=== PATIENT | male | born 1990 | race Caucasian/White ===

== ENCOUNTER 2016-09-23 11:12 | Emergency (ER) | payer MEDICAID, OTHER ==
--- NOTE | 2016-09-23 11:45 | ED ---
URI HPI - General Chief Complaint: Upper Respiratory Infection Stated Complaint: Pneumonia Symptoms Time Seen by Provider: 09/23/16 11:28 Source: patient, RN notes reviewed Mode of arrival: ambulatory Limitations: no limitations - History of Present Illness Initial Comments: 26-year-old male presents emergency department chief complaint of cough and fever. Patient states that he has a history of pneumonia. Patient states that he has had continued cough for the past 3 days. Patient states he started felt febrile states fluids. Patient will no rigidity back. Patient states that he has a history of smoking and still vaps. Patient states he hasn't had any nausea vomiting and he has had some phlegm production. Patient denies any other symptoms he denies any throat or ear pain. He denies any nasal congestion. Patient denies any recent shortness of breath, chest pain, back pain , abdominal pain, nausea vomiting, numbness or tingling, dysuria or hematuria, constipation or diarrhea, headaches or visual changes, or any other current symptoms. - Related Data Home Medications Medication Instructions Recorded Confirmed Buprenorphine HCl [Buprenorphine 8 mg PO TID 07/05/15 07/05/15 HCl] Previous Rx's Medication Instructions Recorded Albuterol Inhaler [Ventolin Hfa 1 - 2 puff INHALATION Q4-6H PRN #1 09/23/16 Inhaler] inhaler Azithromycin [Zithromax] 250 mg PO DIRECTED #6 tab 09/23/16 Allergies Allergy/AdvReac Type Severity Reaction Status Date / Time No Known Allergies Allergy Verified 09/23/16 12:02 Review of Systems ROS Statement: Those systems with pertinent positive or pertinent negative responses have been documented in the HPI. ROS Other: All systems not noted in ROS Statement are negative. Past Medical History Past Medical History: No Reported History History of Any Multi-Drug Resistant Organisms: None Reported Past Surgical History: Orthopedic Surgery Past Psychological History: No Psychological Hx Reported Smoking Status: Current some day smoker Past Alcohol Use History: None Reported Past Drug Use History: None Reported General Exam - General Exam Comments Initial Comments: General: The patient is awake and alert, in no distress, and does not appear acutely ill. Eye: Pupils are equal, round. Ears, nose, mouth and throat: There are moist mucous membranes. Neck: The neck is supple, there is no tenderness. Cardiovascular: There is a regular rate and rhythm. No murmur, rub or gallop is appreciated. Respiratory: Lungs are clear to auscultation, respirations are non-labored, breath sounds are equal but diffusely diminished. No wheezes, stridor, rales, or rhonchi. Back: There is no tenderness to palpation in the midline. There is no obvious deformity. No rashes noted. Musculoskeletal: Normal ROM, no tenderness, There is no pedal edema. There is no calf tenderness or swelling. Sensation intact. Pulses equal bilaterally 2+. Neurological: CN II-XII intact, There are no obvious motor or sensory deficits. Coordination appears grossly intact. Speech is normal. Skin: Skin is warm and dry and no rashes or lesions are noted. Psychiatric: Cooperative, appropriate mood & affect, normal judgment. Limitations: no limitations Course Vital Signs 09/23/16 09/23/16 11:22 11:46 Temperature 98 F Pulse Rate 61 Respiratory 20 16 Rate Blood Pressure 125/65 O2 Sat by Pulse 99 Oximetry Medical Decision Making - Medical Decision Making 26 yo male presents emergency department with concern for pneumonia. Some x- ray is showing suspicion for pneumonia. We will start the patient on azithromycin. We did discuss close follow-up with Dr. eddy parameters all patient's questions. He stated that he understood and is in agreement with plan. He will be discharged home. - Radiology Data Radiology results: report reviewed, image reviewed Disposition Clinical Impression: Bronchopneumonia Disposition: HOME SELF-CARE Condition: Stable Instructions: Bacterial Pneumonia (ED) Additional Instructions: Please use medication as discussed. Please follow up with family doctor if symptoms have not improved over the next two days. Please return to the emergency room if your symptoms increase or worsen or for any other concerns. Prescriptions: Albuterol Inhaler [Ventolin Hfa Inhaler] 1 - 2 puff INHALATION Q4-6H PRN #1 inhaler PRN Reason: Cough Azithromycin [Zithromax] 250 mg PO DIRECTED #6 tab Referrals: Humphrey Celestin MD [Primary Care Provider] - 1-2 days Time of Disposition: 12:03
[2016-09-23 11:53] VITALS: RESP 16
--- NOTE | 2016-09-23 11:57 | XR ---
EXAMINATION TYPE: XR chest 2V DATE OF EXAM: 09/23/2016 COMPARISON: September 29, 2011 HISTORY: Cough and congestion TECHNIQUE: Two frontal and one lateral view were obtained. FINDINGS: There is no bob lung consolidation. However, there is a subtle band of added opacity in the left lower lung zone which appears to correlate with the left lower lobe on the lateral radiograp h. There is also a suggestion of subtle increased opacity in the superior segment of the right lower lobe. This is even more subtle than on the left. Lungs are otherwise unremarkable. Pleural spaces are negative. The cardiac silhouette is normal. Medi astinal silhouette and bones and soft tissues are unremarkable. IMPRESSION: SUBTLE PERIBRONCHIAL FINDINGS; SUSPECT EARLY OR CLEARING BRONCHOPNEUMONIA
[2016-09-23 12:28] VITALS: BP 126/58; PULSE 57; TEMP 98.7
== END 2016-09-23 12:28 | disposition home or self-care (01) ==
LOC: EC 11:12
DX: J18.0 Bronchopneumonia, unspecified organism (principal); F17.200 Nicotine dependence, unspecified, uncomplicated; Z79.899 Other long term (current) drug therapy
CPT/HCPCS: 71020; 99283

== ENCOUNTER 2016-10-02 12:46 | Emergency (ER) | payer OTHER ==
[2016-10-02 12:55] VITALS: BP 127/78; PULSE 60; RESP 16; TEMP 98.3
--- NOTE | 2016-10-02 13:06 | ED ---
Upper Extremity HPI - General Chief Complaint: Extremity Injury, Upper Stated Complaint: rt knuckle injury Time Seen by Provider: 10/02/16 12:55 Source: patient Mode of arrival: ambulatory Limitations: no limitations - History of Present Illness Initial Comments: Patient is a 26-year-old right-handed male presenting to the emergency department with complaints of left hand pain after punching a wall last week. Patient currently rates pain 1 out of 10 described as aching especially when he palpates the distal end of the third metacarpal bone on the ulnar side dorsally. Patient denies previous injury or trauma to left upper hand extremity. Patient denies any other symptoms. No treatment prior to arrival. - Related Data Home Medications Medication Instructions Recorded Confirmed Buprenorphine HCl [Buprenorphine 8 mg PO BID 07/05/15 09/23/16 HCl] Previous Rx's Medication Instructions Recorded Albuterol Inhaler [Ventolin Hfa 1 - 2 puff INHALATION Q4-6H PRN #1 09/23/16 Inhaler] inhaler Azithromycin [Zithromax] 250 mg PO DIRECTED #6 tab 09/23/16 Allergies Allergy/AdvReac Type Severity Reaction Status Date / Time No Known Allergies Allergy Verified 10/02/16 12:52 Review of Systems ROS Statement: Those systems with pertinent positive or pertinent negative responses have been documented in the HPI. ROS Other: All systems not noted in ROS Statement are negative. Past Medical History Past Medical History: No Reported History History of Any Multi-Drug Resistant Organisms: None Reported Past Surgical History: Orthopedic Surgery Past Psychological History: No Psychological Hx Reported Smoking Status: Current some day smoker Past Alcohol Use History: None Reported Past Drug Use History: None Reported General Exam Limitations: no limitations General appearance: alert, in no apparent distress Head exam: Present: atraumatic, normocephalic, normal inspection Eye exam: Present: normal appearance ENT exam: Present: mucous membranes moist, normal external ear exam Neck exam: Present: normal inspection, full ROM. Absent: tenderness Respiratory exam: Present: normal lung sounds bilaterally. Absent: respiratory distress, wheezes, rales, rhonchi, stridor Cardiovascular Exam: Present: regular rate, normal rhythm, normal heart sounds. Absent: systolic murmur GI/Abdominal exam: Present: soft, normal bowel sounds. Absent: distended Left Shoulder Exam: Present: normal inspection, full ROM. Absent: tenderness, swelling Upper Arm exam: Present: normal inspection, full ROM. Absent: tenderness, swelling Elbow exam: Present: normal inspection, full ROM. Absent: tenderness, swelling Forearm Wrist exam: Present: normal inspection, full ROM. Absent: tenderness, swelling Hand Wrist exam: Present: full ROM, tenderness (Tenderness in between the third and fourth finger on the left-hand side particularly around the distal end of the third metacarpal bone.). Absent: swelling, laceration, ecchymosis Neuro motor exam: Present: wrist extension intact, thumb opposition intact, thumb IP flexion intact, thumb adduction intact, fingers 2-5 abduction intact Neurosensory exam: Present: 2-point discrimination, radial nerve intact, ulnar nerve intact, median nerve intact Vascular: Present: vascular compromise, normal capillary refill, radial pulse, brachial pulse, ulnar pulse Neurological exam: Present: alert, oriented X3, normal gait, other (No focal deficits noted.). Absent: motor sensory deficit Psychiatric exam: Present: normal affect, normal mood Skin exam: Present: warm, dry, intact, normal color Course Vital Signs 10/02/16 12:52 Temperature 98.3 F Pulse Rate 60 Respiratory 16 Rate Blood Pressure 127/78 O2 Sat by Pulse 99 Oximetry Medical Decision Making - Medical Decision Making Left hand pain status post direct blow one week ago. X-ray of left hand without fracture or dislocation. Patient instructed to follow-up with orthopedic service with persistent pain. Patient agrees with treatment plan. Discharge instructions and return parameters reviewed. - Radiology Data Radiology results: report reviewed X-ray left hand: No acute fracture or dislocation. Joint spaces in hand appear within normal limits. Overlying soft tissue appears unremarkable. As read by Dr. Car. Disposition Clinical Impression: Hand pain, left Disposition: HOME SELF-CARE Condition: Good Instructions: Hand Sprain (ED) Additional Instructions: Follow-up with orthopedic service if pain persist. Continue Motrin or Tylenol for pain. Please return to the emergency department if symptoms do not improve or get worse. Referrals: Humphrey Celestin MD [Primary Care Provider] - 1-2 days Asher Chavez MD [Medical Doctor] - 1-2 days (Follow-up as needed if pain persist.) Time of Disposition: 13:44
--- NOTE | 2016-10-02 13:42 | XR ---
EXAMINATION TYPE: XR hand complete LT DATE OF EXAM: 10/02/2016 CLINICAL HISTORY: Left hand pain TECHNIQUE: Frontal, lateral and oblique images of the hand are obtained. COMPARISON: None. FINDINGS: There is no acute fracture/dislocation evident in the hand. The joint spaces in the hand a ppear within normal limits. The overlying soft tissue appears unremarkable. IMPRESSION: There is no acute fracture or dislocation in the hand.
== END 2016-10-02 13:45 | disposition home or self-care (01) ==
LOC: EC 12:46
DX: M79.642 Pain in left hand (principal); F17.200 Nicotine dependence, unspecified, uncomplicated; Z79.899 Other long term (current) drug therapy; W20.8XXA Other cause of strike by thrown, projected or falling object, initial encounter
CPT/HCPCS: 99283

== ENCOUNTER 2016-11-18 05:52 | Emergency (ER) | payer OTHER ==
[2016-11-18 06:00] VITALS: BP 122/58; PULSE 53; RESP 18; TEMP 97.1
--- NOTE | 2016-11-18 07:10 | ED ---
General Adult HPI - General Chief complaint: Wound/Laceration Stated complaint: Male Time Seen by Provider: 11/18/16 07:02 Source: patient, RN notes reviewed Mode of arrival: ambulatory Limitations: no limitations - History of Present Illness Initial comments: 26 yo male presents for evaluation of penis laceration. 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 He decided this evening that he would cut the skin bridge with scissors. I do not want to pay for the urological procedure to correct this. Denies any other injury. Patient presented for evaluation because there was significant bleeding which she was unable to control at home. - Related Data Home Medications Medication Instructions Recorded Confirmed No Known Home Medications [No 10/02/16 11/18/16 Known Home Medications] Buprenorphine HCl [Subutex] 8 mg SL BID 11/18/16 11/18/16 Allergies Allergy/AdvReac Type Severity Reaction Status Date / Time No Known Allergies Allergy Verified 10/02/16 12:52 Review of Systems ROS Statement: Those systems with pertinent positive or pertinent negative responses have been documented in the HPI. ROS Other: All systems not noted in ROS Statement are negative. Past Medical History Past Medical History: No Reported History History of Any Multi-Drug Resistant Organisms: None Reported Past Surgical History: Orthopedic Surgery Additional Past Surgical History / Comment(s): R knee sx Past Psychological History: No Psychological Hx Reported Smoking Status: Current every day smoker Past Alcohol Use History: None Reported Past Drug Use History: None Reported General Exam Limitations: no limitations General appearance: alert, in no apparent distress Head exam: Present: atraumatic, normocephalic Eye exam: Present: normal appearance, PERRL ENT exam: Present: normal exam, mucous membranes moist Neck exam: Present: normal inspection. Absent: tenderness Respiratory exam: Present: normal lung sounds bilaterally. Absent: respiratory distress Cardiovascular Exam: Present: regular rate, normal rhythm GI/Abdominal exam: Present: soft. Absent: distended, tenderness External exam: Present: lacerations (Laceration on the left base of the glans, no active bleeding, consistent with lacerated skin bridge) Extremities exam: Present: normal inspection, normal capillary refill Back exam: Present: normal inspection Neurological exam: Present: alert, oriented X3 Psychiatric exam: Present: normal affect, normal mood Skin exam: Present: warm, dry. Absent: cyanosis, diaphoretic Course Vital Signs 11/18/16 05:55 Temperature 97.1 F L Pulse Rate 53 L Respiratory 18 Rate Blood Pressure 122/58 O2 Sat by Pulse 98 Oximetry Medical Decision Making - Medical Decision Making 26-year-old male presenting after cutting a skin bridge on his penis. Patient presented for evaluation of bleeding. Bleeding had stopped at the time my evaluation. Laceration was superficial. Area was cleansed, and bacitracin was placed over the laceration. Patient will return to urology for follow-up. Patient did intend to cut the skin bridge, this was to save money on the cost of a formal operation. Disposition Clinical Impression: Penile laceration Disposition: HOME SELF-CARE Condition: Good Instructions: Laceration (ED) Referrals: Humphrey Celestin MD [Primary Care Provider] - 1-2 days Michael Espinoza MD [STAFF PHYSICIAN] - 1-2 days Time of Disposition: 07:10
== END 2016-11-18 07:21 | disposition home or self-care (01) ==
LOC: EC 05:52
DX: S31.21XA Laceration without foreign body of penis, initial encounter (principal); F17.200 Nicotine dependence, unspecified, uncomplicated; Z79.899 Other long term (current) drug therapy; Y28.8XXA Contact with other sharp object, undetermined intent, initial encounter; Y92.009 Unspecified place in unspecified non-institutional (private) residence as the place of occurrence of the external cause
CPT/HCPCS: 99282

== ENCOUNTER 2017-02-22 12:41 | Inpatient (IN) | payer MEDICAID, OTHER ==
--- NOTE | 2017-02-22 13:58 | ED ---
Psych HPI - General Chief Complaint: Psychiatric Symptoms Stated Complaint: Mental Health Time Seen by Provider: 02/22/17 13:35 Source: family, police Mode of arrival: ambulatory - History of Present Illness Initial Comments: 's patient is a 27-year-old man brought to have psychiatric evaluation. He states that he has been depressed for up to 2 years in relation to the fact that he has been lonely and does not have a girlfriend. The patient states that he was discussing this with his family in does admit to making some suicidal statements and they phoned [id number]. The patient states that he does not really feel suicidal right now. He states that he would like to go. MD Complaint: suicidal ideation, feels depressed Onset/Timin -: year(s) Associated Psychiatric Symptoms: depression, suicidal ideation Quality: constant Improves With: none Worsens With: none Associated Symptoms: denies other symptoms - Related Data Home Medications Medication Instructions Recorded Confirmed Buprenorphine HCl [Subutex] 8 mg SL BID 11/18/16 02/22/17 Allergies Allergy/AdvReac Type Severity Reaction Status Date / Time No Known Allergies Allergy Verified 02/22/17 13:29 Review of Systems ROS Statement: Those systems with pertinent positive or pertinent negative responses have been documented in the HPI. ROS Other: All systems not noted in ROS Statement are negative. Constitutional: Denies: fever Respiratory: Denies: cough, dyspnea Cardiovascular: Denies: chest pain, palpitations Gastrointestinal: Denies: abdominal pain, vomiting Musculoskeletal: Denies: back pain Skin: Denies: rash Neurological: Denies: headache Psychiatric: Reports: as per HPI, depression. Denies: anxiety, auditory hallucinations, visual hallucinations, homicidal thoughts, suicidal thoughts Past Medical History Past Medical History: No Reported History History of Any Multi-Drug Resistant Organisms: None Reported Past Surgical History: Orthopedic Surgery Additional Past Surgical History / Comment(s): R knee sx Past Psychological History: Depression Smoking Status: Current every day smoker Past Alcohol Use History: None Reported Past Drug Use History: None Reported General Exam Limitations: no limitations General appearance: alert, in no apparent distress Head exam: Present: atraumatic, normocephalic Eye exam: Present: normal appearance. Absent: scleral icterus, conjunctival injection ENT exam: Present: normal oropharynx Respiratory exam: Present: normal lung sounds bilaterally. Absent: respiratory distress, wheezes, rales, rhonchi, stridor Cardiovascular Exam: Present: regular rate, normal rhythm, normal heart sounds. Absent: systolic murmur, diastolic murmur, rubs, gallop GI/Abdominal exam: Present: soft. Absent: tenderness Neurological exam: Present: alert Psychiatric exam: Present: normal affect, normal mood. Absent: agitated, anxious, flat affect, manic, homicidal ideation, suicidal ideation Skin exam: Present: warm, dry, intact, normal color. Absent: rash Course Vital Signs 02/22/17 12:47 Temperature 97.2 F L Pulse Rate 70 Respiratory 18 Rate Blood Pressure 140/71 O2 Sat by Pulse 100 Oximetry Disposition Clinical Impression: Mood disorder, Suicidal ideation Disposition: ADMITTED IP TO THIS HOSP Condition: Good
[2017-02-22] MEDS ORDERED: ACETAMINOPHEN TAB 325 MG TAB PO PRN (15:34)
[2017-02-22] MEDS ORDERED: MAGNESIUM HYDROXIDE 2,400 MG/10 ML CUP PO PRN (15:34)
[2017-02-22] MEDS ORDERED: ZIPRASIDONE 20 MG VIAL IM PRN (15:34)
[2017-02-22] MEDS ORDERED: MAG HYDROX/AL HYDROX/SIMETH 30 ML CUP PO PRN (15:34)
[2017-02-22] MEDS: NICOTINE 14MG/24HR PATCH TRANSDERM SCH (16:04)
[2017-02-22 17:12] VITALS: BMI 25.7
[2017-02-22] MEDS: LORazepam 1 MG TAB PO PRN (17:13)
[2017-02-22] MEDS: BUPRENORPHINE HCL 8 MG SL SCH (22:38)
[2017-02-23 08:31] LABS: Basophils % (A) 1 %; CH 29.3; CHCM 32.5; Eosinophils # (A) 0.1 k/uL (0-0.7); Eosinophils % (A) 2 %; HCT 48.5 % (39.0-53.0); HDW 2.22; HGB 15.5 gm/dL (13.0-17.5); Luc % (Auto) 2; Lymphocytes # (A) 2.6 k/uL (1.0-4.8); Lymphocytes % (A) 40 %; MCV 90.6 fL (80.0-100.0); Mean Platelet Volume 6.6; Monocytes # (A) 0.5 k/uL (0-1.0); Monocytes % (A) 7 %; Neutrophils # (A) 3.1 k/uL (1.3-7.7); Neutrophils % (A) 49 %; RBC 5.35 m/uL (4.30-5.90); RDW 13.9 % (11.5-15.5); WBC 6.5 k/uL (3.8-10.6); WBC (Perox) 6.59
[2017-02-23] MEDS: NICOTINE 14MG/24HR PATCH TRANSDERM SCH (08:32)
[2017-02-23] MEDS: LORazepam 1 MG TAB PO PRN (08:33)
[2017-02-23] MEDS: BUPRENORPHINE HCL 8 MG SL SCH ×2 (08:34→21:44)
[2017-02-23 08:45] LABS: ALT 35 U/L (21-72); AST 22 U/L (17-59); Alkaline Phosphatase 46 U/L (38-126); Anion Gap 10 mmol/L; Blood Urea Nitrogen 18 mg/dL (9-20); Calcium 9.9 mg/dL (8.4-10.2); Carbon Dioxide 28 mmol/L (22-30); Chloride 104 mmol/L (98-107); Glucose 85 mg/dL (74-99); Non-African American GFR(MDRD) >60 (>60 ml/min/1.73 sqM); Potassium 4.5 mmol/L (3.5-5.1); Sodium 142 mmol/L (137-145); Total Bilirubin 0.7 mg/dL (0.2-1.3)
[2017-02-23 09:31] LABS: Appearance,Urine Clear (Clear); Bilirubin,Urine Negative (Negative); Glucose,Urine (UA) Negative (Negative); Ketones,Urine Negative (Negative); Leukocyte Esterase,Urine Negative (Negative); Nitrite,Urine Negative (Negative); Protein,Urine Negative (Negative); UA Billing (MACRO vs. MICRO) CHEM; Urobilinogen,Urine <2.0 mg/dL (<2.0)
[2017-02-23] MEDS: OLANZapine 2.5 MG TAB PO SCH ×3 (10:49→21:44)
[2017-02-23] MEDS: FLUoxetine HCL 20 MG CAP PO SCH (10:49)
--- NOTE | 2017-02-23 11:28 | HP ---
HISTORY AND PHYSICAL IDENTIFYING DATA: Patient is a 27-year-old male. He resides with his father. He came to the emergency room for admission. CHIEF COMPLAINT: The patient was depressed, he had suicide thoughts. He was hopeless over relationship issues. His father filed a petition for involuntary hospitalization. HISTORY OF PRESENT ILLNESS: The patient has had problems with depression over the last 2-3 years. He has poor self- esteem. He struggles with shyness and anxiety as his main issue. He recognizes that shyness is a trait he has had his entire life. He says the biggest affect is he feels he can never date someone with the hopes of having a permanent relationship. He broke up with a girlfriend who he had only been seen for 2 weeks. He said she made some very disparaging comments about him, which he took to heart. He became suicidal. He told his father and other people, prompting his father to file petition for admission. The patient acknowledges that he has had depression over 2-3 years, though he cannot really identify precipitants other than a general sense that he is not going very far in his life. He has a high school degree. 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 He says he has some aspirations for going farther with education and career, though he has not been able to do much in that regard. He notes that his biggest issue is struggling with anxiety and shyness. He has trouble socially. He says he tries to be a social person and get out in the community, though when he is around people, he gets very anxious. He says he gets red in the face. He has significant problems just in any setting where he has to meet a new person. He said that this girlfriend that he was seeing for the last 2 weeks was the first time he dated in about 2 years. He reports that he has been sleeping fairly well. He has decent energy. He does have hopeless and helpless feelings. He had been smoking marijuana daily and says that he smokes a significant amount of marijuana, though he stopped smoking altogether about 1 month ago. He had a past history of heroin dependence for 1 year. He got off of heroin about 5 years ago though within a matter of days he was able to get on Suboxone, which he has been taking since. He says he has tapered his Suboxone down to the lowest dose. He has not had any Suboxone in the last 3 days. He denies use of alcohol or other abusive substances. The patient currently is not on any psychotropic medications. He has not had a past psychiatric hospitalization other than some counseling as a teenager. He has not had any other mental health intervention. He is admitted for further evaluation. SUBSTANCE USE HISTORY: As above. PAST MEDICAL HISTORY: Medical history: Patient reports no significant or chronic general health complaints. REVIEW OF SYMPTOMS: Review of systems is negative in 11 systems. Further medical history and review of systems as per medical consultation. FAMILY AND SOCIAL HISTORY: Patient lives with his father. He works at [employer] in [employer]. He is single. 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 He would have an interest in pursuing an academic career in [place]. He has had some legal issues in the past and spent 6 months in correction for retail fraud when he stole about 120 dollars worth of food. He says he has been saving money and feels that he has enough money now to put a down payment on the house, though he would consider trying to get back to school as a good option for him. He has a younger brother, 2 years younger. His parents when he was young. He and his brother lived with mother for their younger years and around age 12 or 13 they moved with their father. There was a lot of conflict in the home and the family was in some counseling when he was in his early teens. He otherwise has not had other mental health intervention. MENTAL STATUS EXAM: Patient was casually dressed and cooperative. Eye contact was fair. He tended to frequently look off to the side rather than give direct eye contact. He was restless. He seemed to have some diaphoresis, which was suggestive of anxiety. There were a few times he got a little red in the face. He answered questions appropriately. His thoughts were clear and coherent. He was spontaneous and interactive. His affect was anxious and at times a little intense. His mood dysphoric. He was significantly distressed. There was no indication of thought disorder. On cognitive exam, he was oriented x3 and alert. Recent remote memory was intact. Attention and concentration were fair. He could spell world forward and backwards. He did adequate calculations. He remembered 3 out of 3 objects at 4 minutes. Insight was fair. Judgment uncertain. Fund of knowledge and intellectual level average. ASSESSMENT: This 27-year-old male is diagnosed with social anxiety disorder, depression, and generalized anxiety disorder. He has had long-term problems with shyness, which is an enduring trait. He has poor self-esteem. The patient has only limited insight in regards to his anxiety condition. He also has withdrawal issues relating to both marijuana and Suboxone. Strengths include [place] intelligence and at least some sense of a direction he could take in his life. Weakness includes struggles with feelings of poor self-worth. DIAGNOSES: 1. Major depression, chronic and recurrent with acute exacerbation without psychotic features. 2. Social anxiety disorder. 3. Opioid dependence. 4. Withdrawal from marijuana and opioids. RECOMMENDATIONS: Patient will be admitted for comprehensive medical psychiatric and psychosocial evaluation. We will engage the patient in individual and group therapeutic activities. I will start the patient on Prozac 20 mg a day to treat depression and anxiety issues. I will start the patient on Zyprexa 2.5 mg 3 times a day. The aim is to help reduce physiologic stress response relating to acute withdrawal. Zyprexa may also help augment his antidepressant and reduce some of his anxiety symptoms. I had an extensive discussion with the patient regarding the critical need for him to remain off Suboxone, marijuana and any other abusive substances. The patient is willing to make an effort to fully withdrawal from opioids. I had an extensive discussion regarding the time frame for withdrawal. We may need to titrate up on his Zyprexa if he is not getting at least some benefit in terms of reducing withdrawal symptoms. I discussed with the patient that I would not anticipate much improvement in regards to antidepressant therapy until he is at least 6 weeks through early withdrawal from his opioids. We discussed career options with a consideration for him to look at getting back to school, possibly to pursue studies in history, which he seems to have a strong interest and knowledge in. We discussed that if he does not have some clear goals in life for himself, he is not likely to be able to get involved in relationships that would be supportive and positive for him. We will focus on stabilization and discharge planning. MMCINDYL / KEIN: [id number] /
--- NOTE | 2017-02-23 16:34 | CONS ---
CONSULTATION DATE OF CONSULTATION: February 23, 2017. REASON FOR CONSULTATION: Medical management requested by Dr. Fay. CONSULTATION: This is a 27-year-old patient of Dr. Shashi Celestin, very pleasant gentleman who actually broke up with his girlfriend and felt feeling depressed and low and told his father he that he wanted to kill himself. He did not really mean it, just wanted some sympathy. Father decided to call him in and patient admitted for the same. The patient still feels a bit low about it. Otherwise in good health, otherwise. Up and about. Tolerating a diet. REVIEW OF SYSTEMS: CONSTITUTIONAL: None. HEENT none. Respiratory none. Cardiovascular none. Gastrointestinal none. GENITOURINARY: None. MUSCULOSKELETAL: None. Dermatological and hematologic, lymphatic none. Psychiatry as above. Neurological none. PAST MEDICAL HISTORY: None. PAST SURGICAL HISTORY: Right knee surgeries. PAST PSYCH HISTORY: History of depression. SOCIAL HISTORY: The patient smokes vapor cigarettes. Has been clean from heroin for 6 years and has been off Suboxone 72 hours. He has a girlfriend. 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 FAMILY HISTORY: Reviewed noncontributory to presentation. HOME MEDICATIONS: mg sublingual b.i.d. ALLERGIES: None. PHYSICAL EXAMINATION: His temperature 97.8, pulse 67, respiratory rate 16, blood pressure 108/55, pulse ox 100% on room air. General appearance is comfortable, sitting up, eyes pupils are equal. Conjunctivae normal. HEENT: Oral cavity normal. Neck JVD not raised. Mass not palpable. Respiratory effort lungs are clear. Cardiovascular first and second sounds, no edema. ABDOMEN: Soft, nontender. Liver and spleen not palpable. Lymphatics: No lymph nodes palpable in the neck and axilla. Psychiatry alert and oriented x3. Mood and affect slightly low appearing. Neurological pupils equal. Cranial nerves grossly intact. Power and sensation grossly intact. INVESTIGATIONS: White count 6.5, hemoglobin 15.5, potassium 4.5./ BUN creatinine . UA is negative. ASSESSMENT: 1. Depressed mood. More formal assessment as per Psychiatry. 2. Smoking use chronic in the form of vapor. PLAN: Antidepressive medications as per Psychiatry. The patient currently on Geodon, Zyprexa, Ativan, Prozac. The patient has been prescribed nicotine patch. The patient should follow up with family doctor upon discharge. Thank you Dr. Fay. LANI / KEIN: [id number] /
[2017-02-24 07:04] VITALS: RESP 14
[2017-02-24] MEDS: BUPRENORPHINE HCL 8 MG SL SCH ×2 (09:20→21:51)
[2017-02-24] MEDS: NICOTINE 14MG/24HR PATCH TRANSDERM SCH (09:20)
[2017-02-24] MEDS: FLUoxetine HCL 20 MG CAP PO SCH (09:20)
[2017-02-24] MEDS: OLANZapine 2.5 MG TAB PO SCH ×3 (09:21→21:51)
--- NOTE | 2017-02-24 17:37 | P.PN ---
Progress Note - Text Progress Note Date: 02/24/17 27yo CM admitted on 02/22/17 after petition filed by his father due to concerns of suicidal intent Last 24hrs: Patient anxious to speak to this provider this morning. When approached during rounds he followed me into my office. Pt adamantly denies SI at this time. He states that he only stated those thoughts to get attention. However, he did tell co-workers along with family members. He reports that he has never attempted suicide and regrets making those statements. Patient became upset when told that he wouldn't be discharged today. States that he is wasting his time being here and ready to return to work. He did sign an AMA form this afternoon. According to unit staff, pt made threats to kick the doors and disrupt the unit if not discharged. Informed patient that behavioral disturbances will not help him get off the unit and he voiced understanding. Nurses report that he has been selectively compliant with Zyprexa but taking the Prozac daily as prescribed. He has been attending groups on the unit. Slept well with 6 hrs last night. No behavioral disturbances displayed thus far. MSE: Pt is a 27yo male who is well-groomed and in NAD. His speech is spontaneous and with normal rate and volume. Mood is frustrated and affect is restricted. Denies SI, HI and AVH. Thought process is linear and goal- directed. AAO x 3. Memory is grossly intact. Judgment and Insight is limited. ASSESSMENT: 1. MDD, chronic, recurrent with acute exacerbation 2. Anxiety DO Unspecified 3. Opioid Dependance PLAN: Continue current medications prescribed. RHETT arranged for family meeting with patient's father tomorrow at 11:30am. Will discuss discharge planning following meeting.
[2017-02-25 06:47] VITALS: BP 103/57; PULSE 62; TEMP 97.5
[2017-02-25] MEDS: NICOTINE 14MG/24HR PATCH TRANSDERM SCH (09:03)
[2017-02-25] MEDS: FLUoxetine HCL 20 MG CAP PO SCH (09:03)
[2017-02-25] MEDS: OLANZapine 2.5 MG TAB PO SCH (09:03)
[2017-02-25] MEDS: BUPRENORPHINE HCL 8 MG SL SCH (09:18)
--- NOTE | 2017-03-16 21:31 | P.DS ---
Providers Date of admission: 02/22/17 15:16 Expected date of discharge: 02/25/17 Attending physician: Tobi Fay, DO Consults: 02/22/17 15:34 Consult Physician Routine Consulting Provider: Maverick Faye Consult Reason/Comments: H and P Do you want consulting provider notified?: Yes Primary care physician: Humphrey Celestin - Discharge Diagnosis(es) (1) Chronic major depressive disorder, recurrent episode Status: Acute (2) Anxiety disorder, unspecified Status: Acute (3) Opioid dependence Status: Acute Hospital Course: Upon admission, patient seen by Dr. Marquez who was covering for this provider. He reported symptoms of depression and anxiety. According to documentation patient stated SI to his family and co-workers. He was started on Prozac 20mg daily and Zyprexa 2.5mg TID. However, on hospital day 2 patient seen by this provider and adamantly denied SI at that time. He stated that he only reported those thoughts to get attention. However, he did tell co-workers along with family members. He reported that he has never attempted suicide and regretted making those statements. Patient became upset when told that he wouldn't be discharged today. Stated that he is wasting his time being here and ready to return to work. He did sign an AMA form that afternoon. According to unit staff, pt made threats to kick the doors and disrupt the unit if not discharged. Patient was informed that behavioral disturbances will not help him get off the unit and he voiced understanding. No behavioral disturbances were displayed during hospitalization. Nurses reported that pt had been selectively compliant with Zyprexa but was taking the Prozac daily as prescribed. When questioned about this patient stated that he did not like the way the Zyprexa made him feel and therefore did not want to continue this medication. Therefore Zyprexa was discontinued. He attended groups on the unit. Although he initially reported symptoms of social anxiety, he appeared to be very social and interactive with other patients on the unit throughout hospital stay. He also maintained good sleep hygiene and appetite throughout hospitalization. On discharge patient continued to deny SI. A family meeting was held with patient's father, whom he lives with, prior to discharge and his father felt comfortable with patient returning home. Patient Condition at Discharge: Good Plan - Discharge Summary Discharge Rx Participant: No New Discharge Prescriptions: New FLUoxetine HCL [PROzac] 20 mg PO DAILY #30 cap Nicotine 14Mg/24Hr Patch [Habitrol] 1 patch TRANSDERM DAILY #30 patch Continue Buprenorphine HCl [Subutex] 8 mg SL BID Discharge Medication List Buprenorphine HCl [Subutex] 8 mg SL BID 11/18/16 [History] FLUoxetine HCL [PROzac] 20 mg PO DAILY #30 cap 02/25/17 [Rx] Nicotine 14Mg/24Hr Patch [Habitrol] 1 patch TRANSDERM DAILY #30 patch 02/25/17 [ Rx] Follow up Appointment(s)/Referral(s): [facility] [Outside] - 03/04/17 10:00 am (Humphrey Prince MD [Primary Care Provider] - 1-2 days Patient Instructions/Handouts: Cigarette Smoking and Your Health (GEN), Mood Disorders (GEN), Suicide Prevention for Adults (GEN) Activity/Diet/Wound Care/Special Instructions: Activity and diet as tolerated. Avoid the use of street drugs and alcohol. Take all medications as prescribed. When you are in need of refills on your medications please contact your medical provider and/or outpatient psychiatrist to have this done. Please go to scheduled outpatient appointment for aftercare treatment. If symptoms return or become worse call the crisis line at [phone] and/or go to the nearest emergency room for an evaluation. Discharge Disposition: HOME SELF-CARE
== END 2017-02-25 13:44 | disposition home or self-care (01) | DRG 751 ==
LOC: EC 12:41 → 3MHU 15:16
PROVIDERS: ADMIT Psychiatry & Neurology Psychiatry; ATTEND Psychiatry & Neurology Psychiatry
DX: F33.9 Major depressive disorder, recurrent, unspecified (principal); R45.851 Suicidal ideations; F17.290 Nicotine dependence, other tobacco product, uncomplicated; F41.8 Other specified anxiety disorders; F12.288 Cannabis dependence with other cannabis-induced disorder; F11.23 Opioid dependence with withdrawal; Z79.899 Other long term (current) drug therapy
CPT/HCPCS: 80053; 81003; 82075; 84443; 85025; 99285

== ENCOUNTER → 2018-11-29 | Outpatient (CLI) | payer OTHER ==
--- NOTE | 2018-11-29 19:12 | FL ---
EXAMINATION TYPE: Left wrist fluoroscopic-guided arthrogram injection. DATE OF EXAM: 11/29/2018 HISTORY: 28-year-old male worsening dorsal left wrist pain for 10 months. PROCEDURES: 1. Left wrist fluoroscopy. 2. Left wrist arthrogram. Total fluoroscopy time: 42 seconds. Total images: 14. TECHNIQUE: The procedure, risks, and alternatives, were discussed with the patient, who requested that karon valadez The consent form was signed, and teach-back occurred. The site/side of the procedure was marked with a line with participation by the patient. The accompan reuben paperwork was verified for consistency. A directed history and physical exam was performed prior to the procedure. A critical pause was perfo rmed with assisting personnel just prior to the procedure, and the patient's identity was confirmed u sing 2 identifiers. Imaging guidance was utilized to select the precise skin entry point just prior to the procedure. The dorsal left wrist was prepped and draped in the usual sterile fashion and local 1% lidocaine anes thesia was instilled. Under fluoroscopic guidance, a 25-gauge long needle was introduced into the do rsal aspect of the left radioscaphoid joint. Appropriate needle tip position was confirmed after a sm all amount of contrast injection. Approximately 2.5 ml of a mixture of Omnipaque 350 iodinated contrast, sterile saline, and Gadavist w as injected into the wrist joint. This was taken from a 20 mL mixture comprised of 5 mL Omnipaque 350 , 15 mL sterile saline, and 0.07 mL Gadavist. The needle was then removed. The patient tolerated the procedure well. A post-procedure note was placed into the medical record. There was no immediate complication. After the procedure, the patient's condition was unchanged. Estimated blood loss was minimal. The pa tient was counseled on routine post procedure precautions including monitoring for signs of infection . Post procedure radiographs demonstrate extension of injected contrast into the midcarpal compartment and level of the intermetacarpal joints. No abnormal extension into the distal radioulnar joint. IMPRESSION: Technically successful left wrist arthrogram injection for MRI. No immediate complication. We note ex tension across the scapholunate interval into the midcarpal compartment.
--- NOTE | 2018-11-29 19:44 | MR ---
EXAMINATION TYPE: MRI arthrogram left wrist DATE OF EXAM: 11/29/2018 COMPARISON: Arthrogram injection same day HISTORY: 28-year-old male left wrist pain, limited range of motion. Technique: Multiplanar, multisequence images of the left wrist were obtained after intra-articular in jection of a gadolinium mixture (refer to arthrogram injection report of the same day for further det ails). FINDINGS: There is adequate contrast distention of the wrist joint. There is lobular heterogeneity and irregularity of the dorsal scapholunate ligament with contrast see n extending into the midcarpal compartment. The lunotriquetral ligament is intact. Overall cartilage is maintained without evidence for bony erosions. Mild tenosynovial fluid seen along the extensor carpi radialis longus and extensor pollicis longus. S ome iatrogenically introduce contrast is present along the extensor carpi radialis longus and brevis. Some tendinotic signal is present within the distal extensor carpi ulnaris. Otherwise, the dorsal ext ensor and flexor tendons are within normal limits. There is fusiform thickening of the median nerve at the level of the distal carpal crease measuring u p to 26.2 sq mm. The central portion of the triangular fibrocartilage remains intact. However, there is prominent cont rast extension into the distal radial ulnar joint with some irregularity noted of the dorsal radiouln ar ligament. Filling of a multilocular cyst measuring 1.3 x 1.1 cm along the inferior aspect of the pisotriquetral joint. The visualized musculature and osseous structures are within normal limits. IMPRESSION: 1. Injection into the dorsal radioscaphoid joint shows contrast extension into the midcarpal compartm ent. Given the irregular appearance to the dorsal portion of the scapholunate ligament, underlying te ar is suggested. 2. Additional contrast extension into the distal radioulnar joint with irregularity of the dorsal rad ial ulnar ligament suspicious for tear. The central portion of the TFC remains intact. Clinically cor relate. 3. Fusiform thickening of the median nerve up to 26.2 sq mm can be seen with carpal tunnel syndrome. 4. Small multilocular ganglion cyst measuring 1.3 x 1.1 cm along the inferior aspect of the pisotriqu etral joint fills with contrast. 5. Mild tenosynovial fluid along the EPL and ECRL may be physiologic or could reflect a mild tenosyno vitis.
== END | disposition home or self-care (01) ==
LOC: RADFLMAIN 12:50
PROVIDERS: ATTEND Orthopaedic Surgery
DX: G56.02 Carpal tunnel syndrome, left upper limb (principal); M67.432 Ganglion, left wrist
CPT/HCPCS: 25246; 73115; 73222; A9585; Q9967

== ENCOUNTER 2021-09-13 23:29 | Emergency (ER) | payer OTHER ==
[2021-09-13 23:39] VITALS: BP 115/67; PULSE 75; RESP 18; TEMP 98.1
[2021-09-14] MEDS ORDERED: DIPH,PERTUS(ACELL)TETVAC-LF 0.5 ML VIAL IM ONE (00:38)
--- NOTE | 2021-09-14 00:40 | ED ---
General Adult HPI - General Chief complaint: Skin/Abscess/Foreign Body Stated complaint: Cat Bite Time Seen by Provider: 09/14/21 00:30 Source: patient, RN notes reviewed, old records reviewed Mode of arrival: ambulatory Limitations: no limitations - History of Present Illness Initial comments: 31-year-old male presents to the emergency room stating his cat bit his right lower leg 3 days ago. Patient states that it became red and swollen today with some drainage. He denies any other medical history. He is not sure if his tetanus shot is up-to-date. -: days(s) (3) Location: right, lower extremity (calf) Radiation: non-radiation Severity scale (1-10): 8 Quality: constant Consistency: constant - Related Data Home Medications Medication Instructions Recorded Confirmed buprenorphine HCL [Subutex] 8 mg SL BID 11/18/16 02/22/17 Previous Rx's Medication Instructions Recorded FLUoxetine HCL [PROzac] 20 mg PO DAILY #30 cap 02/25/17 Nicotine 14Mg/24Hr Patch [Habitrol] 1 patch TRANSDERM DAILY #30 patch 02/25/17 Amoxicillin/Potassium Clav 1 tab PO Q12HR 7 Days #14 tab 09/14/21 [Augmentin 875-125 Tablet] Allergies Allergy/AdvReac Type Severity Reaction Status Date / Time No Known Allergies Allergy Verified 02/22/17 13:29 Review of Systems ROS Statement: Those systems with pertinent positive or pertinent negative responses have been documented in the HPI. ROS Other: All systems not noted in ROS Statement are negative. Past Medical History Past Medical History: No Reported History History of Any Multi-Drug Resistant Organisms: None Reported Past Surgical History: Orthopedic Surgery Additional Past Surgical History / Comment(s): R knee sx Past Anesthesia/Blood Transfusion Reactions: No Reported Reaction Past Psychological History: Depression Smoking Status: Current every day smoker Past Alcohol Use History: None Reported Past Drug Use History: None Reported General Exam Limitations: no limitations General appearance: alert, in no apparent distress Head exam: Present: atraumatic Eye exam: Present: normal appearance Respiratory exam: Present: normal lung sounds bilaterally. Absent: respiratory distress, accessory muscle use Cardiovascular Exam: Present: regular rate GI/Abdominal exam: Present: soft. Absent: distended Neurological exam: Present: alert, oriented X3, normal gait Psychiatric exam: Present: normal affect, normal mood Skin exam: Present: erythema, other (three puncture wounds right calf with surrounding erythema measuring approximately 11 cm x 7 cm) Course Vital Signs 09/13/21 23:36 Temperature 98.1 F Pulse Rate 75 Respiratory 18 Rate Blood Pressure 115/67 O2 Sat by Pulse 98 Oximetry Medical Decision Making - Medical Decision Making Wounds are irrigated with saline by the nurse. Bacitracin dressing was applied. Tetanus shot was updated. He was placed on antibiotics and given a dose in the emergency room. Patient's erythema was outlined with a skin marker. He was instructed to return to the emergency room with any new or concerning symptoms including spreading redness, increased pain or fevers. Patient is agreeable to this plan of care. Disposition Clinical Impression: Cat bite involving extremity, Cellulitis Disposition: HOME SELF-CARE Condition: Good Instructions (If sedation given, give patient instructions): Animal Bite (ED), Cellulitis (ED) Additional Instructions: Take antibiotics as prescribed. Return to the emergency room with any new or concerning symptoms including increased pain, redness, fevers or persistent nausea and vomiting. Prescriptions: Amoxicillin/Potassium Clav [Augmentin 875-125 Tablet] 1 tab PO Q12HR 7 Days #14 tab Is patient prescribed a controlled substance at d/c from ED?: No Referrals: Anjum Bojorquez MD [Primary Care Provider] - 1-2 days Time of Disposition: 00:51
[2021-09-14] MEDS ORDERED: AMOXIC-POT CLAV 875-125MG 1 EACH TAB PO STA (00:51)
[2021-09-14] MEDS ORDERED: BACITRACIN OINT 1 EACH PACKET TOPICAL ONE (00:56)
== END 2021-09-14 01:06 | disposition home or self-care (01) ==
LOC: EC 23:29
DX: S81.851A Open bite, right lower leg, initial encounter (principal); L03.90 Cellulitis, unspecified; F17.200 Nicotine dependence, unspecified, uncomplicated; Z23 Encounter for immunization; W55.01XA Bitten by cat, initial encounter
CPT/HCPCS: 90715

== ENCOUNTER 2024-06-21 22:55 | Emergency (ER) | payer OTHER ==
[2024-06-21 23:08] VITALS: RESP 18; TEMP 97.6
--- NOTE | 2024-06-21 23:48 | ED ---
Nausea/Vomiting/Diarrhea HPI - General Chief complaint: Nausea/Vomiting/Diarrhea Stated complaint: NVD abd pain Time Seen by Provider: 06/21/24 23:42 Source: patient, RN notes reviewed Mode of arrival: ambulatory Limitations: no limitations - History of Present Illness Initial comments: 34-year-old male with no reported medical history resents emergency department for complaint of abdominal pain and diarrhea over the past 3 to 4 days. Lower mid abdominal pain that is nonradiating described as a squeezing sensation that is relatively persistent however will occasionally intensify especially after he eats food. He endorses 9 bloody diarrhea with upwards of 8 episodes per day. Denies recent travel or trying new foods. Denies fevers, chills, nausea, vomiting, urinary complaints. Denies previous surgical abdominal history. - Related Data Home Medications Medication Instructions Recorded Confirmed buprenorphine HCL [Subutex] 8 mg SL BID 11/18/16 02/22/17 Previous Rx's Medication Instructions Recorded FLUoxetine HCL [PROzac] 20 mg PO DAILY #30 cap 02/25/17 Nicotine 14Mg/24Hr Patch [Habitrol] 1 patch TRANSDERM DAILY #30 patch 02/25/17 Amoxicillin/Potassium Clav 1 tab PO Q12HR 7 Days #14 tab 09/14/21 [Augmentin 875-125 Tablet] Loperamide [Imodium] 2 mg PO QID PRN #16 capsule 06/22/24 Allergies Allergy/AdvReac Type Severity Reaction Status Date / Time No Known Allergies Allergy Verified 06/21/24 23:05 Review of Systems ROS Statement: Those systems with pertinent positive or pertinent negative responses have been documented in the HPI. ROS Other: All systems not noted in ROS Statement are negative. Past Medical History Past Medical History: No Reported History History of Any Multi-Drug Resistant Organisms: None Reported Past Surgical History: Orthopedic Surgery Additional Past Surgical History / Comment(s): R knee sx Past Anesthesia/Blood Transfusion Reactions: No Reported Reaction Past Psychological History: Depression Smoking Status: Current every day smoker Past Alcohol Use History: None Reported Past Drug Use History: None Reported General Exam Limitations: no limitations Respiratory exam: Present: normal lung sounds bilaterally. Absent: respiratory distress, wheezes, rales, rhonchi, stridor Cardiovascular Exam: Present: regular rate, normal rhythm, normal heart sounds. Absent: systolic murmur, diastolic murmur, rubs, gallop, clicks GI/Abdominal exam: Present: soft, normal bowel sounds. Absent: distended, tenderness, guarding, rebound, rigid Extremities exam: Present: normal inspection, full ROM, normal capillary refill. Absent: tenderness, pedal edema, joint swelling, calf tenderness Back exam: Present: normal inspection Skin exam: Present: warm, dry, intact, normal color. Absent: rash Course Vital Signs 06/21/24 06/22/24 23:05 01:08 Temperature 97.6 F Pulse Rate 68 84 Respiratory 18 18 Rate Blood Pressure 134/90 126/80 O2 Sat by Pulse 98 99 Oximetry Medical Decision Making - Medical Decision Making Was pt. sent in by a medical professional or institution (, PA, VP & GENERAL COUNSEL, urgent care, hospital, or penitentiary...) When possible be specific @ -No Did you speak to anyone other than the patient for history (EMS, parent, family, police, friend...)? What history was obtained from this source @ -No Did you review nursing and triage notes (agree or disagree)? Why? @ -I reviewed and agree with nursing and triage notes Were old charts reviewed (outside hosp., previous admission, EMS record, old EKG, old radiological studies, urgent care reports/EKG's, penitentiary records)? Report findings @ -No old charts were reviewed Differential Diagnosis (chest pain, altered mental status, abdominal pain women, abdominal pain men, vaginal bleeding, weakness, fever, dyspnea, syncope, headache, dizziness, GI bleed, back pain, seizure, CVA, palpatations, mental health, musculoskeletal)? @ -Differential Abdominal Pain Men: Appendicitis, cholecystitis, diverticulosis, ischemic bowel, pancreatitis, hepatitis, UTI, gastroenteritis, AAA, incarcerated hernia, bowel obstruction, constipation, inflammatory bowel, hepatitis, peptic ulcer disease, splenic infarction, perforated viscus, testicular torsion, this is not meant to be an all-inclusive list EKG interpreted by me (3pts min.). @ -None X-rays interpreted by me (1pt min.). @ -None done CT interpreted by me (1pt min.). @ -None done U/S interpreted by me (1pt. min.). @ -None done What testing was considered but not performed or refused? (CT, X-rays, U/S, labs)? Why? @ -None What meds were considered but not given or refused? Why? @ -None Did you discuss the management of the patient with other professionals (professionals i.e. , PA, VP & GENERAL COUNSEL, lab, RT, psych nurse, licensed social worker, change analyst, teacher, forest fire management officer, nurse case manager)? Give summary @ -No Was smoking cessation discussed for >3mins.? @ -No Was critical care preformed (if so, how long)? @ -No Were there social determinants of health that impacted care today? How? (Homelessness, low income, unemployed, alcoholism, drug addiction, transportation, low edu. Level, literacy, decrease access to med. care, care home, rehab)? @ -No Was there de-escalation of care discussed even if they declined (Discuss DNR or withdrawal of care, Hospice)? DNR status @ -No What co-morbidities impacted this encounter? (DM, HTN, Smoking, COPD, CAD, Cancer, CVA, ARF, Chemo, Hep., AIDS, mental health diagnosis, sleep apnea, morbid obesity)? @ -None Was patient admitted / discharged? Hospital course, mention meds given and route, prescriptions, significant lab abnormalities, going to OR and other pertinent info. @ -Discharge. 34-year-old male presenting with diarrhea and abdominal pain. On my evaluation patient is resting comfortably. Abdominal examination completed is unremarkable. There is no tenderness palpation through all quadrants and equal bowel sounds heard throughout all quadrants. Patient was offered antiemetics however is declined. He is provided with fluids with continued concern for possible dehydration due to multiple episodes of diarrhea. Laboratory test including CBC, CMP unremarkable. Patient symptoms likely secondary to gastroenteritis. Supportive treatment discussed at bedside. Case discussed with Maria Eugenia Bynum Undiagnosed new problem with uncertain prognosis? @ -No Drug Therapy requiring intensive monitoring for toxicity (Heparin, Nitro, Insulin, Cardizem)? @ -No Were any procedures done? @ -No Diagnosis/symptom? @ -Gastroenteritis, acute diarrhea Acute, or Chronic, or Acute on Chronic? @ -Acute Uncomplicated (without systemic symptoms) or Complicated (systemic symptoms)? @ -Uncomplicated Side effects of treatment? @ -No Exacerbation, Progression, or Severe Exacerbation? @ -No Poses a threat to life or bodily function? How? (Chest pain, [place], [place], pneumonia, PE, COPD, DKA, ARF, appy, cholecystitis, CVA, Diverticulitis, Homicidal, Suicidal, threat to staff... and all critical care pts) @ -No - Lab Data Result diagrams: 06/22/24 00:01 06/22/24 00:01 Lab Results 06/22/24 06/22/24 Range/Units 00:01 00:01 WBC 4.2 (3.8-10.6) k/uL RBC 5.44 (4.30-5.90) m/uL Hgb 14.9 (13.0-17.5) gm/dL Hct 46.0 (39.0-53.0) % MCV 84.5 (80.0-100.0) fL MCH 27.4 (25.0-35.0) pg MCHC 32.4 (31.0-37.0) g/dL RDW 12.5 (11.5-15.5) % Plt Count 227 (150-450) k/uL MPV 6.9 Neutrophils % 46 % Lymphocytes % 39 % Monocytes % 10 % Eosinophils % 1 % Basophils % 1 % Neutrophils # 1.9 (1.3-7.7) k/uL Lymphocytes # 1.6 (1.0-4.8) k/uL Monocytes # 0.4 (0-1.0) k/uL Eosinophils # 0.1 (0-0.7) k/uL Basophils # 0.0 (0-0.2) k/uL Sodium 135 L (137-145) mmol/L Potassium 4.4 (3.5-5.1) mmol/L Chloride 99 (98-107) mmol/L Carbon Dioxide 27 (22-30) mmol/L Anion Gap 9 mmol/L BUN 16 (9-20) mg/dL Creatinine 0.76 (0.66-1.25) mg/dL Est GFR (CKD-EPI)AfAm >90 (>60 ml/min/1.73 sqM) Est GFR (CKD-EPI)NonAf >90 (>60 ml/min/1.73 sqM) Glucose 89 (74-99) mg/dL Calcium 9.2 (8.4-10.2) mg/dL Total Bilirubin 0.7 (0.2-1.3) mg/dL AST 29 (17-59) U/L ALT 23 (4-49) U/L Alkaline Phosphatase 47 (38-126) U/L Total Protein 6.8 (6.3-8.2) g/dL Albumin 4.2 (3.5-5.0) g/dL Amylase 36 (30-110) U/L Lipase 26 (23-300) U/L Disposition Clinical Impression: Gastroenteritis Disposition: HOME SELF-CARE Condition: Good Instructions (If sedation given, give patient instructions): Acute Diarrhea (ED) Additional Instructions: Please return to the Emergency Department if symptoms worsen or any other concerns. Prescriptions: Loperamide [Imodium] 2 mg PO QID PRN #16 capsule PRN Reason: Diarrhea Is patient prescribed a controlled substance at d/c from ED?: No Referrals: Delvin Santo MD [Primary Care Provider] - 1-2 days Time of Disposition: 00:52
[2024-06-22] MEDS: SODIUM CHLORIDE 0.9% 1,000 ML IV STA (00:02)
[2024-06-22 00:18] LABS: Basophils % (A) 1 %; Eosinophils # (A) 0.1 k/uL (0-0.7); Eosinophils % (A) 1 %; HGB 14.9 gm/dL (13.0-17.5); Lymphocytes # (A) 1.6 k/uL (1.0-4.8); Lymphocytes % (A) 39 %; MCH 27.4 pg (25.0-35.0); MCHC 32.4 g/dL (31.0-37.0); MCV 84.5 fL (80.0-100.0); Mean Platelet Volume 6.9; Monocytes # (A) 0.4 k/uL (0-1.0); Monocytes % (A) 10 %; Neutrophils # (A) 1.9 k/uL (1.3-7.7); Neutrophils % (A) 46 %; Platelet Count 227 k/uL (150-450); RBC 5.44 m/uL (4.30-5.90); RDW 12.5 % (11.5-15.5); WBC 4.2 k/uL (3.8-10.6)
[2024-06-22 00:43] LABS: ALT 23 U/L (4-49); AST 29 U/L (17-59); African American GFR (CKD) >90 (>60 ml/min/1.73 sqM); Albumin 4.2 g/dL (3.5-5.0); Alkaline Phosphatase 47 U/L (38-126); Amylase 36 U/L (30-110); Anion Gap 9 mmol/L; Blood Urea Nitrogen 16 mg/dL (9-20); Calcium 9.2 mg/dL (8.4-10.2); Carbon Dioxide 27 mmol/L (22-30); Chloride 99 mmol/L (98-107); Glucose 89 mg/dL (74-99); Lipase 26 U/L (23-300); Non-African American GFR(CKD) >90 (>60 ml/min/1.73 sqM); Potassium 4.4 mmol/L (3.5-5.1); Sodium 135 mmol/L (137-145); Total Bilirubin 0.7 mg/dL (0.2-1.3); Total Protein 6.8 g/dL (6.3-8.2)
[2024-06-22 01:09] VITALS: BP 126/80; PULSE 84
== END 2024-06-22 01:09 | disposition home or self-care (01) ==
LOC: EC 22:55
DX: K52.9 Noninfective gastroenteritis and colitis, unspecified (principal); F17.200 Nicotine dependence, unspecified, uncomplicated
CPT/HCPCS: 36415; 80053; 82150; 83690; 85025; 96360; 99283